=== PATIENT | male | born 1970 | race Two or more races ===

== ENCOUNTER → 2017-11-30 | Emergency (ER) | payer SELFPAY ==
[~2017-11-30] VITALS: Ht 177.8 cm; Wt 106.6 kg
--- NOTE | 2017-11-30 20:15 | NUR ---
BILAT LOWER EXTREMITY SWELLING/ PAIN. VSS. DENIES CP, SOB, DIZZINESS, N/V & NAD NOTED @ THIS TIME.
[2017-11-30 21:39] VITALS: BP 120/78
== END | disposition home or self-care (01) ==
LOC: ER 20:01
DX: R60.0 Localized edema (principal)
CPT/HCPCS: A4606; Z7502; Z7610